=== PATIENT | female | born 2000 | race Caucasian/White ===

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

== ENCOUNTER → 2020-02-02 | Outpatient (CLI) | payer MEDICAID ==
[~2020-02-02] MED LIST changes: +ACHD5005 PO; +BENZ56AE2 TP; +DOCU100C37 PO; +FERR325T18 PO; +IBUP-1773 PO
--- NOTE | 2020-02-02 14:04 | Diagnostic Imaging Report ---
INDICATION: anatomic assessment during . TECHNIQUE: Multiple real-time grayscale images were obtained over the gravid uterus. COMPARISON: None FINDINGS: There is presence of a single live intrauterine in breech presentation. Placenta is posterior without previa. Normal amount of amniotic fluid is present, index at 11.96 cm. cardiac activity 132 bpm. Cervix measure approximately 4.7 cm. Ovaries are not visualized. Visualized anatomical structures including the kidneys, bladder, stomach, intracranial structures, four-chamber heart, three-vessel cord and insertion site as well as spine are visualized and unremarkable. Biometrical measurements are as follows: Biparietal 4.43 cm, age 19 weeks 3 days. Head circumference 17.26 cm, age 19 weeks 6 days. Abdominal circumference 15.67 cm, age 20 weeks 6 days. Femur length 3.12 cm, age 19 weeks 5 days. Sonographic estimate age: 20 weeks 0 days. Sonographic estimated date of delivery: 06/21/2020. Estimated Weight: 340 gm (+/- 50 gm). LMP percentile: 67%. heart rate: 132 beats per minute. number: 1 of 1. IMPRESSION: 1. Single live intrauterine , currently in a breech presentation. Sonographic estimated age 20 weeks 0 days for estimated date of delivery June 21, 2020. No abnormalities demonstrated at this time. Dictated by: Dictated on workstation # [id number]
== END ==
LOC: RAD 12:00
PROVIDERS: ATTEND Obstetrics & Gynecology
DX: O32.1XX0 Maternal care for breech presentation, not applicable or unspecified (principal); Z3A.20 20 weeks gestation of pregnancy
CPT/HCPCS: 76805

== ENCOUNTER 2020-06-11 17:09 | Outpatient (CLI) | payer MEDICAID ==
[~2020-06-11] VITALS: Ht 167.7 cm; Wt 113.9 kg
--- NOTE | 2020-06-11 17:17 | NUR ---
JÚNIOR ESCALERA presented to unit via wheelchair from home, accompanied by s/o , with c/o CONTRACTIONS 5 MIN APART. JÚNIOR ESCALERA weighed, gowned, voided, and to bed. EFHM and TOCO applied, VS taken. JÚNIOR ESCALERA oriented to bed controls, call light, TV, heat, and A/C controls.
[2020-06-11 17:37] VITALS: BP 137/78
--- NOTE | 2020-06-11 18:08 | NUR ---
Dr. Butler notified of pt arrival, recent sve, and contraction pattern. Plan of care reviewed. No new orders received. Addendum: 06/11/20 at 1814 by CARY GIRON RN New orders were received.
--- NOTE | 2020-06-11 18:25 | NUR ---
OB outpatient discharge instructions given to patient. PHS given to patient. Instructions given to patient on continuing going to visits. Pt verbalizes understanding. Pt signs that discharge instructions were given.
--- NOTE | 2020-06-11 18:26 | NUR ---
Pt discharged from unit in stable condition via ambulatory accompanied by s/o.
--- NOTE | 2020-06-12 08:01 | Physician Query-Final Dx ---
NICHOLAS JIMENEZ 06/12/20 0801: Clinic Account Progress/Dx Physician Query: Please give diagnosis Please include # weeks gestation Date of Service Jun 11, 2020 at 17:09 RICO MCKEON DO 06/12/20 0840: Clinic Account Progress/Dx DIAGNOSIS: Diagnosis 38 week IUP Irregular contractions NICHOLAS JIMENEZ Jun 12, 2020 08:01 RICO MCKEON DO Jun 12, 2020 08:40
== END 2020-06-11 18:26 ==
LOC: WSo 17:09 → LDRP 17:12 → WSo 18:26
PROVIDERS: ATTEND Obstetrics & Gynecology
DX: O62.0 Primary inadequate contractions (principal); Z3A.38 38 weeks gestation of pregnancy
CPT/HCPCS: 99213

== ENCOUNTER 2020-06-20 06:00 | Inpatient (IN) | payer MEDICAID ==
[2020-06-20] VITALS (32 sets, daily range): BP systolic 96–175; BP diastolic 58–105
[2020-06-20] MEDS ORDERED: D5 LR IV SOLUTION 1,000 ML IV ONE (14:17)
--- NOTE | 2020-06-20 14:20 | NUR ---
JÚNIOR ESCALERA presented to unit via AMBULATORY from ED, accompanied by S/O, with c/o INDUCTION. JÚNIOR ESCALERA weighed, gowned, voided, and to bed. EFHM and TOCO applied, VS taken. JÚNIOR ESCALERA oriented to bed controls, call light, TV, heat, and A/C controls.
[2020-06-20] MEDS ORDERED: D5 LR IV SOLUTION 1,000 ML IV SCH (14:30)
[2020-06-20] MEDS ORDERED: OXYTOCIN PRE-MIX DRIP 500 ML IV SCH (14:30)
[2020-06-20 15:09] LABS: BASOPHILS % (AUTO) 0 % (0-10); EOSINOPHILS # (AUTO) 0.2 10^3/uL (0.0-0.3); EOSINOPHILS % (AUTO) 1 % (0-10); HEMATOCRIT 30 % (35-52); HEMOGLOBIN 9.2 g/dL (11.5-16.0); LYMPHOCYTES # (AUTO) 2.4 10^3/uL (1.0-4.0); LYMPHOCYTES % (AUTO) 19 % (12-44); MEAN CORPUSCULAR HEMOGLOBIN 23 pg (25-34); MEAN CORPUSCULAR HGB CONC 31 g/dL (32-36); MEAN CORPUSCULAR VOLUME 73 fL (80-99); MEAN PLATELET VOLUME 10.8 fL (9.0-12.2); MONOCYTES # (AUTO) 0.8 10^3/uL (0.0-1.0); MONOCYTES % (AUTO) 6 % (0-12); NEUTROPHILS # (AUTO) 8.9 10^3/uL (1.8-7.8); NEUTROPHILS % (AUTO) 70 % (42-75); PLATELET COUNT 272 10^3/uL (130-400); WHITE BLOOD COUNT 12.8 10^3/uL (4.3-11.0)
--- NOTE | 2020-06-20 15:40 | History & Physical-OB ---
OB - Chief Complaint & HPI Date/Time Date of Admission: Date of Admission: Jun 20, 2020 at 1:47 pm Date seen by a Provider: Jun 20, 2020 Time Seen by a Provider: 17:30 Chief Complaint/History OB-Reason for Admission/Chief: Induction of Labor Hx : 3 Hx Para: 2 Expected Date of Delivery: Jun 22, 2020 Gestational Age in Weeks: 39 Gestational Age in Days: 5 Indication for induction: maternal discomfort Admission Nurse Assessment Rev: Yes History of Labs O pos Antibody +- anti-c RI RPR NR HBsAg NR HIV NR GC neg GBS neg Allergies and Home Medications Allergies Coded Allergies: No Known Drug Allergies (Unverified , 03/21/17) Home Medications Vit/Iron Fumarate/FA 1 Each Tablet, 1 EACH PO DAILY, (Reported) Patient Home Medication List Home Medication List Reviewed: Yes OB - History Hx of Present Care: Yes Ultrasounds: Normal mid trimester US Obstetrical Complications: None Medical Complications: None Delivery History Adverse Rxn to Tranfusion: No Patient Past Medical History BMI > 35 Immunizations Hepatitis A: Yes Hepatitis B: Yes OB - Admission Exam Physical Exam HEENT: NCAT Heart: Rhythm Normal Lungs: Clear Abdomen: Gravid Extremities: Normal Reflexes: Normal Cervical Dilatation: 4cm Effacement: 75% Station: -1 Membranes: Intact Heart Rate: 130's Accelerations: Accelerations Present Decelerations: No Decelerations Short Term Variability: Present Hand Method Lasting Machine Operator Variability: Average (6-25) Contractions on Admission: 6-10 Minutes Apart Intensity: Mild Labs Laboratory Tests Test 06/20/20 14:40 06/20/20 14:44 Range/Units White Blood Count 12.8 H 4.3-11.0 10^3/uL Red Blood Count 4.03 3.80-5.11 10^6/uL Hemoglobin 9.2 L 11.5-16.0 g/dL Hematocrit 30 L 35-52 % Mean Corpuscular Volume 73 L 80-99 fL Mean Corpuscular Hemoglobin 23 L 25-34 pg Mean Corpuscular Hemoglobin Concent 31 L 32-36 g/dL Red Cell Distribution Width 15.6 H 10.0-14.5 % Platelet Count 272 130-400 10^3/uL Mean Platelet Volume 10.8 9.0-12.2 fL Immature Granulocyte % (Auto) 3 % Neutrophils (%) (Auto) 70 42-75 % Lymphocytes (%) (Auto) 19 12-44 % Monocytes (%) (Auto) 6 0-12 % Eosinophils (%) (Auto) 1 0-10 % Basophils (%) (Auto) 0 0-10 % Neutrophils # (Auto) 8.9 H 1.8-7.8 10^3/uL Lymphocytes # (Auto) 2.4 1.0-4.0 10^3/uL Monocytes # (Auto) 0.8 0.0-1.0 10^3/uL Eosinophils # (Auto) 0.2 0.0-0.3 10^3/uL Basophils # (Auto) 0.0 0.0-0.1 10^3/uL Immature Granulocyte # (Auto) 0.4 H 0.0-0.1 10^3/uL OB - Assessment/Plan/Diagnosis Assessment Assessment: induction of labor Admission Dx 19 yo @ 39 weeks Induction of labor GBS neg Admission Status: Inpatient Order (span 2 midnights) Reason for Inpatient Admission: Induction of labor at term Plan Plan: Induction Induction Method: per Pitocin Protocol RICO MCKEON DO Jun 20, 2020 3:40 pm
[2020-06-20] MEDS ORDERED: fentaNYL 2 mcg/ml BUPIVA 0.125 100 ML ONE (16:24)
--- NOTE | 2020-06-20 16:33 | NUR ---
Zak JENNINGS CRNA NOTIFIED OF PT'S DESIRE FOR EPIDURAL PLACEMENT.
[2020-06-20] MEDS ORDERED: fentaNYL INJECTION 100 MCG/2 ML AMP ONE (16:57)
[2020-06-20] MEDS ORDERED: BUPIVACAINE 0.25% 30 ML (SENSORCAINE) VIAL ONE (16:58)
--- NOTE | 2020-06-20 17:00 | NUR ---
1700 Zak JENNINGS CRNA & ANESTHESIA STUDENT here for epidural placement. Procedure explained, consent reviewed and signed by anesthesia. Questions answered to patient's satisfaction. Time out taken to verify correct patient/procedure. 1707 Patient up to side of bed, assisted into sitting position. 1724 Betadine prep done x3 and sterile drape applied. 1725 Local done, see anesthesia record. 1729 Test dose given, see anesthesia record for drug and dosage. Epidural catheter secured in place. Epidural placement complete. 1735 Assisted back into bed, monitors adjusted. Epidural dosed, see anesthesia record. Epidural infusing @12cc/hr stated per pump. Patient tolerated procedure well. Epidural was attempted x2, see anesthesia record for further.
[2020-06-20] MEDS ORDERED: NALOXONE 0.4 MG/ML 1 ML (NARCAN) VIAL IV PRN (17:45)
[2020-06-20] MEDS ORDERED: CATHETER FLUSH 10 ML SYR IV PRN (17:45)
[2020-06-20] MEDS ORDERED: fentaNYL 2 mcg/ml BUPIVA 0.125 100 ML IV SCH (17:45)
[2020-06-20] MEDS ORDERED: LACTATED RINGERS 1,000 ML IV ONE (17:45)
[2020-06-20] MEDS ORDERED: LIDOCAINE/EPI 2% 1:200,00 (XYLOCAINE) 10 ML VIAL ONE (20:27)
--- NOTE | 2020-06-20 20:36 | NUR ---
(Social Service Consult entered) Delivery time, see labor lilli, S/O who has previously been staring off while being addressed verbally by rn, and sleeping heavily at pt bedside, does not wake as pt yelling his name for support through delivery. S/o was lightly shaken awake by this rn and now up at pt bedside for delivery. As pt being coached by staff, s/o mumbling under breath and cussing, as delivers and is put on MOB chest, S/O impulsively walks from room as his mumbling continues and goes to vending machine for soft drink. returns to room within minutes and is back at pt bedside as mob holds stable infant.
--- NOTE | 2020-06-20 20:54 | OB Labor & Delivery Record ---
L&D History Date of Service Date of Service: Jun 20, 2020 History Expected Date of Delivery: Jun 22, 2020 Gestational Age in Weeks: 39 Hx : 3 Hx Para: 2 Complications Events: Routine care Operative Indications (Cesarea: N/A-Vaginal Delivery Intrapartal Events: None L&D Stage1 Stage One Onset of Labor - Date: Jun 20, 2020 Monitors and Tracing Monitor Mode: External Heart Rate: 120 Monitor Accelerations: Uniform Monitor Decelerations: Variable Station: -2 Longterm Variability: Average (6-10) Short Term Variability: Present Presentation: Vertex Vital Signs VS - Last 72 Hours, by Label 06/20/20 06/20/20 06/20/20 06/20/20 14:24 15:16 15:40 15:48 Temp 36.1 Pulse 103 87 86 81 Resp 18 18 18 18 B/P (MAP) 132/75 (94) 125/83 (97) 125/72 (89) 127/84 (98) O2 Delivery Room Air Room Air Room Air Room Air 06/20/20 06/20/20 06/20/20 06/20/20 16:01 16:17 16:33 16:46 Temp 36.3 Pulse 82 79 86 85 Resp 18 18 18 18 B/P (MAP) 132/85 (101) 175/105 (128) 140/86 (104) 116/85 (95) O2 Delivery Room Air Room Air Room Air Room Air 06/20/20 06/20/20 06/20/20 06/20/20 17:01 17:09 17:11 17:14 Pulse 78 91 96 92 Resp 18 18 18 18 B/P (MAP) 127/77 (94) 141/79 (99) 135/62 (86) 139/87 (104) Pulse Ox 98 100 O2 Delivery Room Air Room Air Room Air Room Air 06/20/20 06/20/20 06/20/20 06/20/20 17:18 17:20 17:23 17:26 Pulse 91 83 97 96 Resp 18 18 18 18 B/P (MAP) 133/74 (93) 139/85 (103) 143/92 (109) 136/98 (111) Pulse Ox 100 100 100 100 O2 Delivery Room Air Room Air Room Air Room Air 06/20/20 06/20/20 06/20/2006/20/20 17:32 17:38 17:51 17:56 Temp 36.1 35.9 Pulse 90 90 126 96 Resp 18 18 18 18 B/P (MAP) 137/88 (104) 114/70 (85) 112/67 (82) 122/72 (89) Pulse Ox 100 100 98 98 O2 Delivery Room Air Room Air Room Air Room Air 06/20/20 06/20/20 06/20/20 06/20/20 18:12 18:28 18:34 18:42 Temp 36.2 36.4 Pulse 109 106 99 Resp 18 18 18 B/P (MAP) 113/77 (89) 109/72 (84) 107/69 (82) Pulse Ox 98 99 98 O2 Delivery Room Air Room Air Room Air 06/20/20 18:58 Pulse 85 Resp 18 B/P (MAP) 96/58 (71) Pulse Ox 98 O2 Delivery Room Air Rupture of Membranes Spontaneous Ruture of Membrane: No Amniotic Membrane Rupture Time: 1554 Amniotic Membrane Fluid Desc.: Clear Vaginal Bleeding Description: Normal Show Induction/Anesthesia Epidural Cath Placement - Time: 1728 Progress/Notes Patient admitted this afternoon for IOL electively at 39 weeks. She had arom and pitocin augmentation, received an epidural and progressed to complete and +2 station. L&D Stage2 Stage Two Stage II Date: Jun 20, 2020 Monitors and Tracing Monitor Mode: External Heart Rate: 120 Monitor Accelerations: Uniform Monitor Decelerations: Variable Gymnastics Instructor Variability: Average (6-10) Short Term Variability: Present Position: Right Occiput Anterior Presentation: Vertex Cord Descript/Complications Cord Vessel Description: 3 Vessels Delivery Type Delivery Method: Spontaneous Vaginal Anterior Shoulder: Right Condition of Delivery 1 minute Comment: 8 5 minute Comment: 9 Notes Live male infant weight pending Condition of Infant Condition of : Living Exam: No Observed Abnormalities Resuscitation Resuscitation: N/A - Spontaneous Resp L&D Stage3 Stage Three Stage III Date: Jun 20, 2020 Pictocin Pitocin Administration mu/min: 2 Pitocin ml/hr: 2 Pitocin Administration Comment: 30 mu wide open at delivery of placenta. Placenta Delivery Placenta Delivery: Spontaneous Delivery Summary Summary Estimated blood loss (mL): 300 Attending at delivery: Rico Mckeon DO Condition of Delivery Examined: Cervix Examined, Uterus Explored Post Hemorrhage: No Condition of Mother stable Condition of (s) stable RICO MCKEON DO Jun 20, 2020 20:53
[2020-06-20] MEDS ORDERED: BENZ78AE5 TP (20:55)
[2020-06-20] MEDS ORDERED: DCS100C PO (20:55)
[2020-06-20] MEDS ORDERED: ACHD5005 PO (20:55)
[2020-06-20] MEDS ORDERED: DIBU30OI TOP (20:55)
[2020-06-20] MEDS ORDERED: IBUP-844 PO (20:55)
--- NOTE | 2020-06-20 20:56 | Discharge Inst-Women's Service ---
Discharge Inst-Women's Serv Depart Medication/Instructions New, Converted or Re-Newed RX: RX on Chart Problems Reviewed?: Yes Consults/Follow Up Additional Follow Up: Yes Activity Activity: Activity as Tolerated Driving Instructions: No Driving for 1 Week NO SMOKING: NO SMOKING Nothing Inside Vagina: No Douching, No [place], No Tampons Diet Discharge Diet: No Restrictions Symptoms to Report to : Bleeding Excessive, Pain Increased, Fever Over 101 Degrees F, Vaginal Bleeding Increase, Questions/Concerns For Any Problems or Questions: Contact Your Physician RICO MCKEON DO Jun 20, 2020 20:56
[2020-06-20] MEDS ORDERED: TETANUS,DIPTH,PERTUSS P/F (BOOSTRIX) 0.5 ML VIAL IM ONE (21:00)
[2020-06-20] MEDS ORDERED: BENZOCAINE/MENTHOL (DERMOPLAST) 60 ML CAN TP PRN (21:00)
[2020-06-20] MEDS ORDERED: HYDROcodone/APAP 5 MG/325 MG (LORTAB) TAB PO PRN (21:00)
[2020-06-20] MEDS ORDERED: DIBUCAINE (NUPERCAINAL) 1% OINT 30 GM TOP PRN (21:00)
[2020-06-20] MEDS ORDERED: WITCH HAZEL(TUCKS) 40 EA JAR TOP PRN (21:00)
[2020-06-20] MEDS ORDERED: MEASLES,MUMPS,RUBELLA 1 EA INJ SQ ONE (21:00)
[2020-06-20] MEDS: OXYTOCIN PRE-MIX DRIP 500 ML IV SCH ×2 (21:10→23:07)
[2020-06-20] MEDS ORDERED: CATHETER FLUSH 10 ML SYR IV SCH ×2 (22:00)
--- NOTE | 2020-06-20 22:10 | NUR ---
Pt up to bathroom, unable to void, pericare pads and gown changed pt ambulates to pp unit room 313, oriented to surroundings info packet, and call system, understanding voiced. S/o at pt side now, plans to leave, rn educated s/o that if he leaves, he cannot reenter the hospital at any time during pts stay. Understanding voiced by s/o who still intends to leave, and bring [employer] back to pt by leaving it with registration.
--- NOTE | 2020-06-20 23:20 | NUR ---
Pt up to bathroom independently, first void since delivery, pt calls rn for concern of bleeding, pt reassured, ff midline u/0, no gushing or bleeding noted on fundal massage, will cont to monitor. Pt voiced understanding.
[2020-06-21 02:10] VITALS: BP 128/67
[2020-06-21] MEDS: IBUPROFEN 600 MG (MOTRIN) TAB PO SCH ×4 (02:11→22:01)
[2020-06-21 06:24] VITALS: BP 124/78
--- NOTE | 2020-06-21 06:52 | Anesthesia-Regional Post-Op ---
Regional Patient Condition Mental Status: Alert, Oriented x3 Circulation: Same as Pre-Op Headache: Absent Sensation: Full Recovery Motor Block: Absent Post Op Complications Complications None Follow Up Care/Instructions Patient Instructions None needed. Anesthesia/Patient Condition Patient is doing well, no complaints, stable vital signs, no apparent adverse anesthesia problems. No complications reported per nursing. D/C home per [facility] Criteria: No GISELL JENNINGS CRNA Jun 21, 2020 06:52
[2020-06-21 06:57] LABS: BASOPHILS % (AUTO) 0 % (0-10); EOSINOPHILS # (AUTO) 0.1 10^3/uL (0.0-0.3); EOSINOPHILS % (AUTO) 1 % (0-10); HEMATOCRIT 27 % (35-52); HEMOGLOBIN 8.1 g/dL (11.5-16.0); LYMPHOCYTES # (AUTO) 3.1 10^3/uL (1.0-4.0); LYMPHOCYTES % (AUTO) 22 % (12-44); MEAN CORPUSCULAR HEMOGLOBIN 22 pg (25-34); MEAN CORPUSCULAR HGB CONC 30 g/dL (32-36); MEAN CORPUSCULAR VOLUME 74 fL (80-99); MEAN PLATELET VOLUME 10.6 fL (9.0-12.2); MONOCYTES # (AUTO) 0.9 10^3/uL (0.0-1.0); MONOCYTES % (AUTO) 7 % (0-12); NEUTROPHILS # (AUTO) 9.7 10^3/uL (1.8-7.8); NEUTROPHILS % (AUTO) 69 % (42-75); PLATELET COUNT 215 10^3/uL (130-400); WHITE BLOOD COUNT 14.1 10^3/uL (4.3-11.0)
--- NOTE | 2020-06-21 08:43 | Postpartum Progress Note ---
Note Note Day # 1 Subjective: Patient is without complaints. Ambulating, voiding. Tolerating a regular diet without nausea or vomiting. Normal lochia. Pain is well controlled with oral pain medications. Objective: Physical Exam: General - Alert and oriented, no apparent distress Abdomen - Soft, appropriately tender to palpation, non-distended, fundus firm at umbilicus Extremities - no edema, negative Misael's bilaterally Assessment: PPD 1 NVD Acute blood loss anemia Plan: Routine care. Encourage breast feeding. Encourage ambulation. Ferrous sulfate supplementation. Plan for discharge tomorrow Vitals - Labs Vital Signs - I&O Vital Signs Date Time Temp Pulse Resp B/P (MAP) Pulse Ox O2 Delivery O2 Flow Rate FiO2 06/21/20 06:24 36.8 82 18 124/78 (93) 96 Room Air 06/21/20 02:10 36.6 94 18 128/67 (87) 97 Room Air 06/20/20 22:10 81 18 123/77 (92) Room Air 06/20/20 22:00 78 18 123/77 (92) Room Air 06/20/20 21:45 37.0 91 18 124/85 (98) Room Air 06/20/20 21:30 37.0 77 18 124/80 (95) Room Air 06/20/20 21:15 36.6 77 18 123/58 (79) Room Air 06/20/20 21:00 36.6 76 18 131/66 (87) Room Air 06/20/20 20:45 36.8 90 18 131/62 (85) Room Air 06/20/20 20:36 Room Air 06/20/20 20:30 93 18 135/76 (95) 100 Non Rebreather 15.00 06/20/20 20:15 79 18 100 Non Rebreather 15.00 06/20/20 20:00 76 18 100 Non Rebreather 15.00 06/20/20 19:45 75 18 100 Non Rebreather 15.00 06/20/20 18:58 85 18 96/58 (71) 98 Room Air 06/20/20 18:42 99 18 107/69 (82) 98 Room Air 06/20/20 18:34 36.4 06/20/20 18:28 106 18 109/72 (84) 99 Room Air 12/17/20 18:12 36.2 109 18 113/77 (89) 98 Room Air 06/20/20 17:56 35.9 96 18 122/72 (89) 98 Room Air 06/20/20 17:51 126 18 112/67 (82) 98 Room Air 06/20/20 17:38 36.1 90 18 114/70 (85) 100 Room Air 06/20/20 17:32 90 18 137/88 (104) 100 Room Air 06/20/20 17:26 96 18 136/98 (111) 100 Room Air 06/20/20 17:23 97 18 143/92 (109) 100 Room Air 06/20/20 17:20 83 18 139/85 (103) 100 Room Air 06/20/20 17:18 91 18 133/74 (93) 100 Room Air 06/20/20 17:14 92 18 139/87 (104) 100 Room Air 06/20/20 17:11 96 18 135/62 (86) Room Air 06/20/20 17:09 91 18 141/79 (99) 98 Room Air 06/20/20 17:01 78 18 127/77 (94) Room Air 06/20/20 16:46 85 18 116/85 (95) Room Air 06/20/20 16:33 86 18 140/86 (104) Room Air 06/20/20 16:17 36.3 79 18 175/105 (128) Room Air 06/20/20 16:01 82 18 132/85 (101) Room Air 06/20/20 15:48 81 18 127/84 (98) Room Air 06/20/20 15:40 86 18 125/72 (89) Room Air 06/20/20 15:16 36.1 87 18 125/83 (97) Room Air 06/20/20 14:24 103 18 132/75 (94) Room Air I & O 06/21/20 07:00 Intake Total 1000 ml Balance 1000 ml Labs Laboratory Tests 06/20/20 14:40: White Blood Count 12.8H, Red Blood Count 4.03, Hemoglobin 9.2L, Hematocrit 30L, Mean Corpuscular Volume 73L, Mean Corpuscular Hemoglobin 23L, Mean Corpuscular Hemoglobin Concent 31L, Red Cell Distribution Width 15.6H, Platelet Count 272, Mean Platelet Volume 10.8, Immature Granulocyte % (Auto) 3, Neutrophils (%) (Auto) 70, Lymphocytes (%) (Auto) 19, Monocytes (%) (Auto) 6, Eosinophils (%) (Auto) 1, Basophils (%) (Auto) 0, Neutrophils # (Auto) 8.9H, Lymphocytes # (Auto) 2.4, Monocytes # (Auto) 0.8, Eosinophils # (Auto) 0.2, Basophils # (Auto) 0.0, Immature Granulocyte # (Auto) 0.4H 06/20/20 14:44: Coronavirus (COVID-19)(PCR) Negative 06/21/20 06:15: White Blood Count 14.1H, Red Blood Count 3.63L, Hemoglobin 8.1L, Hematocrit 27L, Mean Corpuscular Volume 74L, Mean Corpuscular Hemoglobin 22L, Mean Corpuscular Hemoglobin Concent 30L, Red Cell Distribution Width 15.6H, Platelet Count 215, Mean Platelet Volume 10.6, Immature Granulocyte % (Auto) 1, Neutrophils (%) (Auto) 69, Lymphocytes (%) (Auto) 22, Monocytes (%) (Auto) 7, Eosinophils (%) (Auto) 1, Basophils (%) (Auto) 0, Neutrophils # (Auto) 9.7H, Lymphocytes # (Auto) 3.1, Monocytes # (Auto) 0.9, Eosinophils # (Auto) 0.1, Basophils # (Auto) 0.0, Immature Granulocyte # (Auto) 0.1 RICO MCKEON DO Jun 21, 2020 8:43 am
[2020-06-21 10:12] VITALS: BP 134/73
[2020-06-21] MEDS: DOCUSATE SODIUM 100 MG (COLACE) CAP PO SCH ×2 (10:14→22:01)
[2020-06-21] MEDS: PRENATAL VITAMIN 1 EA TAB PO SCH (10:14)
--- NOTE | 2020-06-21 10:30 | NUR ---
PRODUCTION BORING MACHINE OPERATOR CURRENTLY AT BEDSIDE.
--- NOTE | 2020-06-21 11:27 | NUR ---
CM/SS: Visited with pt as per Collection Correspondent Consult related to issues with significant other and financial assistance. Plan: Pt will return home where she lives with and her two other children, in [place], [place] Summary: Pt is attempting to breast feed her infant the entire time this worker is present. However, pt is having some issues with getting to latch on. Pt is able to talk to this worker during this. Pt is asked about his significant other and him not being able to stay awake during the . She reports that he was extremely tired and he was just unable to stay awake. She reports having been up all night and then early in the morning. She reports he is here, only he is in the parking lot, as he left to get [employer] and can not return, due to the visitor policy. Pt has WIC for her other children - ages 2 and 3, and she will notify them that she has delivered. She does have doctor lined up for the , as she will use the other children's doctors. Post depression is discussed - pt reports a history of some depression and was in foster care when she was 12 until age 15 and adopted. Pt is encouraged to let her primary physician know if she feels like she is experiencing some depression. She reports having contact with her biological parents and not her adoptive parents and identify them as a support. She also report that she has support of her 's family. She is given a list of resources provided from the [facility]. She thanks this worker for visiting and is wished well. Follow up information given to the nurse assigned to pt.
[2020-06-21 14:32] VITALS: BP 114/64
[2020-06-21 18:31] VITALS: BP 143/88
--- NOTE | 2020-06-21 18:35 | NUR ---
PT AT THIS TIME. VS OBTAINED. SHOWER SET UP PER REQUEST, MORE WIPES PLACED INTO BATHROOM. NO FURTHER NEEDS VOICED AT THIS TIME. CALL LIGHT WITHIN REACH.
[2020-06-21 21:00] VITALS: BP 145/89
[2020-06-22 02:00] VITALS: BP 142/76
[2020-06-22] MEDS: DOCUSATE SODIUM 100 MG (COLACE) CAP PO SCH ×2 (03:39→08:55)
[2020-06-22] MEDS: IBUPROFEN 600 MG (MOTRIN) TAB PO SCH ×3 (03:40→15:21)
--- NOTE | 2020-06-22 07:00 | NUR ---
REPORT FROM YEVGENIY HINKLE.
[2020-06-22 08:54] VITALS: BP 138/76
[2020-06-22] MEDS: PRENATAL VITAMIN 1 EA TAB PO SCH (08:55)
--- NOTE | 2020-06-22 11:07 | Postpartum Progress Note ---
Note Note Day # 2 Subjective: Patient is without complaints. Ambulating, voiding. Tolerating a regular diet without nausea or vomiting. Normal lochia. Pain is well controlled with oral pain medications. Objective: Physical Exam: General - Alert and oriented, no apparent distress Abdomen - Soft, appropriately tender to palpation, non-distended, fundus firm at umbilicus Extremities - no edema, negative Misael's bilaterally Assessment: PPD 2 NVD Plan: Routine care. Encourage breast feeding. Encourage ambulation. Ferrous sulfate supplementation. Plan for discharge today Vitals - Labs Vital Signs - I&O Vital Signs Date Time Temp Pulse Resp B/P (MAP) Pulse Ox O2 Delivery O2 Flow Rate FiO2 06/22/20 08:54 35.8 88 18 138/76 (96) 97 Room Air 06/22/20 02:00 37.1 73 18 142/76 (98) 98 Room Air 06/21/20 21:00 36.4 81 18 145/89 (107) 99 Room Air 06/21/20 18:31 77 18 143/88 (106) 99 Room Air 06/21/20 14:32 36.3 92 18 114/64 (81) 99 Room Air RICO MCKEON DO Jun 22, 2020 11:07
--- NOTE | 2020-06-22 11:30 | NUR ---
DR MCKEON HERE NEW ORDERS RECEIVED.
--- NOTE | 2020-06-22 15:15 | NUR ---
JÚNIOR ESCALERA demonstrates understanding of discharge instructions and accurately returns instructions upon questioning. Copy of Post-Discharge Instructions given to pt. JÚNIOR ESCALERA is/ able to manage continuing needs after discharge. Patients belongings returned to .
[2020-06-22 15:22] VITALS: BP 147/90
--- NOTE | 2020-06-22 16:30 | NUR ---
Patient discharged from 3313-1 on 06/22/20 at 1630. JÚNIOR ESCALERA left floor via [WC], accompanied by [STAFF].
== END 2020-06-22 16:30 | disposition home or self-care (01) | DRG 806 ==
LOC: LDRP 13:47
PROVIDERS: ADMIT Obstetrics & Gynecology; ATTEND Obstetrics & Gynecology
PROC: 10E0XZZ Delivery of Products of Conception, External Approach (ICD-10-PCS; principal; 2020-06-20)
PROC: 3E033VJ Introduction of Other Hormone into Peripheral Vein, Percutaneous Approach (ICD-10-PCS; 2020-06-20)
DX: O90.81 Anemia of the puerperium (principal); D62 Acute posthemorrhagic anemia; Z37.0 Single live birth; Z3A.39 39 weeks gestation of pregnancy
CPT/HCPCS: 36415; 85025; 86850; 86870; 86900; 86901; 86902; 87635

== ENCOUNTER → 2021-11-05 | Outpatient (CLI) | payer MEDICAID ==
[~2021-11-05] MED LIST changes: +BENZ78AE5 TP; +DIBU30OI TOP; +DOCU-239 PO; +IBUP-844 PO
[2021-11-05 16:23] LABS: BASOPHILS # (AUTO) 0.1 10^3/uL (0.0-0.1); BASOPHILS % (AUTO) 1 % (0-10); EOSINOPHILS # (AUTO) 0.1 10^3/uL (0.0-0.3); EOSINOPHILS % (AUTO) 1 % (0-10); HEMATOCRIT 37 % (35-52); HEMOGLOBIN 11.5 g/dL (11.5-16.0); LYMPHOCYTES # (AUTO) 2.5 10^3/uL (1.0-4.0); LYMPHOCYTES % (AUTO) 29 % (12-44); MEAN CORPUSCULAR HEMOGLOBIN 26 pg (25-34); MEAN CORPUSCULAR HGB CONC 31 g/dL (32-36); MEAN CORPUSCULAR VOLUME 84 fL (80-99); MEAN PLATELET VOLUME 10.9 fL (9.0-12.2); MONOCYTES # (AUTO) 0.4 10^3/uL (0.0-1.0); MONOCYTES % (AUTO) 5 % (0-12); NEUTROPHILS # (AUTO) 5.5 10^3/uL (1.8-7.8); NEUTROPHILS % (AUTO) 64 % (42-75); PLATELET COUNT 285 10^3/uL (130-400); WHITE BLOOD COUNT 8.6 10^3/uL (4.3-11.0)
[2021-11-05 21:08] LABS: HEPATITIS C ANTIBODY C Non-Reactive (Non-Reactive)
== END ==
LOC: LABNPT 16:04
PROVIDERS: ATTEND Obstetrics & Gynecology
DX: Z36.89 Encounter for other specified antenatal screening (principal)
CPT/HCPCS: 82105; 85025; 86703; 86762; 86780; 86803; 86850; 86870; 86900; 86901; 87340

== ENCOUNTER → 2021-12-11 | Outpatient (CLI) | payer MEDICAID ==
--- NOTE | 2021-12-11 17:09 | Diagnostic Imaging Report ---
INDICATION: patient, survey. TECHNIQUE: Multiple real-time grayscale images were obtained over the gravid uterus. COMPARISON: None during this . FINDINGS: A single live intrauterine fetus is seen measuring 20 weeks 4 days in size by composite measurements. The fetus is in transverse orientation with head on the maternal left. Cervical length is 3.9 cm. Placenta is anterior with no evidence of previa. Distance from the internal os to the placental tip was 4.8 cm. heart rate is 153 bpm. Maternal adnexa show no free fluid. survey showed normal-appearing kidneys and bladder. Normal-appearing stomach was seen. Normal-appearing intracranial ventricles were seen. Three-vessel cord and cord insertion appear normal. spine appear unremarkable. The four-chamber heart view appeared normal. Biometrical measurements are as follows: Biparietal 4.62 cm, age 20 weeks 0 days. Head circumference 18.46 cm, age 20 weeks 6 days. Abdominal circumference 15.31 cm, age 20 weeks 4 days. Femur length 3.41 cm, age 20 weeks 6 days. Sonographic estimate age: 20 weeks 4 days. Sonographic estimated date of delivery: 04/26/2022. Estimated Weight: 365 gm (+/- 54 gm). LMP percentile: 55%. heart rate: 153 beats per minute. number: 1 of 1. IMPRESSION: Single live intrauterine fetus measuring 20 weeks 4 days in size, with no detectable abnormality. Dictated by: Dictated on workstation # [id number]
== END ==
LOC: RAD 15:30
PROVIDERS: ATTEND Nurse Practitioner Women's Health
DX: Z34.92 Encounter for supervision of normal pregnancy, unspecified, second trimester (principal); Z3A.20 20 weeks gestation of pregnancy
CPT/HCPCS: 76805

== ENCOUNTER 2022-04-24 09:30 | Inpatient (IN) | payer MEDICAID ==
[~2022-04-24] VITALS: Ht 168 cm; Wt 101.2 kg
[2022-04-24] VITALS (29 sets, daily range): BP systolic 93–139; BP diastolic 56–91
[2022-04-24] MEDS ORDERED: LIDOCAINE/EPI 2% 1:200,00 (XYLOCAINE) 10 ML VIAL INJ PRN (10:15)
[2022-04-24] MEDS ORDERED: MINERAL OIL 30 ML UDC TOP PRN (10:15)
[2022-04-24] MEDS ORDERED: D5 LR IV SOLUTION 1,000 ML IV SCH (10:15)
[2022-04-24 10:31] LABS: BILIRUBIN,URINE NEGATIVE (NEGATIVE); CLARITY,URINE CLEAR; COLOR,URINE YELLOW; GLUCOSE, URINE (UA) NEGATIVE (NEGATIVE); KETONES,URINE NEGATIVE (NEGATIVE); LEUKOCYTE ESTERASE ,URINE 1+ (NEGATIVE); NITRITE,URINE NEGATIVE (NEGATIVE); PROTEIN,URINE NEGATIVE (NEGATIVE)
[2022-04-24 10:42] LABS: AMORPHOUS SEDIMENT,UR FEW AMOR PHOSPHATE /LPF; BACTERIA,URINE MODERATE /HPF
[2022-04-24 11:23] LABS: BASOPHILS % (AUTO) 0 % (0-10); EOSINOPHILS # (AUTO) 0.1 10^3/uL (0.0-0.3); EOSINOPHILS % (AUTO) 1 % (0-10); HEMATOCRIT 33 % (35-52); HEMOGLOBIN 10.7 g/dL (11.5-16.0); LYMPHOCYTES # (AUTO) 1.9 10^3/uL (1.0-4.0); LYMPHOCYTES % (AUTO) 14 % (12-44); MEAN CORPUSCULAR HEMOGLOBIN 26 pg (25-34); MEAN CORPUSCULAR HGB CONC 33 g/dL (32-36); MEAN CORPUSCULAR VOLUME 81 fL (80-99); MEAN PLATELET VOLUME 10.7 fL (9.0-12.2); MONOCYTES # (AUTO) 0.6 10^3/uL (0.0-1.0); MONOCYTES % (AUTO) 5 % (0-12); NEUTROPHILS # (AUTO) 11.4 10^3/uL (1.8-7.8); NEUTROPHILS % (AUTO) 80 % (42-75); PLATELET COUNT 217 10^3/uL (130-400); WHITE BLOOD COUNT 14.2 10^3/uL (4.3-11.0)
[2022-04-24] MEDS ORDERED: fentaNYL 2 mcg/ml BUPIVA 0.125 100 ML ONE (12:07)
[2022-04-24] MEDS ORDERED: OXYTOCIN PRE-MIX DRIP 500 ML IV ONE (12:30)
[2022-04-24] MEDS ORDERED: fentaNYL INJ 100 MCG/2 ML AMP ONE (12:42)
[2022-04-24] MEDS ORDERED: BUPIVACAINE 0.25% 30 ML (SENSORCAINE) VIAL ONE (12:43)
[2022-04-24] MEDS ORDERED: diphenhydrAMINE 50 MG/ML INJ (BENADRYL) IV PRN (13:30)
[2022-04-24] MEDS ORDERED: fentaNYL 2 mcg/ml BUPIVA 0.125 100 ML IV SCH (13:30)
[2022-04-24] MEDS ORDERED: ONDANSETRON 4 MG/2 ML (SDV) Z0FRAN IV PRN (13:30)
[2022-04-24] MEDS ORDERED: LACTATED RINGERS 1,000 ML IV ONE (13:30)
[2022-04-24] MEDS ORDERED: CATHETER FLUSH 10 ML SYR IV PRN (13:30)
[2022-04-24] MEDS ORDERED: NALOXONE 0.4 MG/ML 1 ML (NARCAN) VIAL IV PRN ×2 (13:30→17:00)
--- NOTE | 2022-04-24 15:12 | History & Physical-OB ---
OB - Chief Complaint & HPI Date/Time Date of Admission: Date of Admission: Apr 24, 2022 at 09:30 Date seen by a Provider: Apr 24, 2022 Time Seen by a Provider: 15:07 Chief Complaint/History OB-Reason for Admission/Chief: Onset of Labor Hx : 4 Hx Para: 3 Expected Date of Delivery: Apr 27, 2022 Gestational Age in Weeks: 39 Gestational Age in Days: 4 Other reason for admission: Term Labor Admission Nurse Assessment Rev: Yes History of Labs Labs: O+/+ anti C Ab, VDRL NR, Rubella Immune, HBsAg non-reactive, GC/CT negative, 1hr GCT 78, GBS neg Allergies and Home Medications Allergies Coded Allergies: No Known Drug Allergies (Unverified , 03/21/17) Patient Home Medication List Home Medication List Reviewed: Yes Discontinued Medications Benzocaine/Menthol (Dermoplast Pain Relieving [place]) 78 Gm Aerosol, 56 ML TP UD PRN for PAIN- SEE INSTRUCTIONS Prescribed by: RICO MCKEON on 06/20/202054 Last Action: Discontinued Dibucaine (Dibucaine) 30 Gm Oint, 0 GM TOP UD PRN for PAIN- SEE INSTRUCTIONS Prescribed by: RICO MCKEON on 06/20/202054 Last Action: Discontinued Docusate Sodium (Dok) 100 Mg Capsule, 100 MG PO BID PRN for CONSTIPATION-1ST LINE Prescribed by: RICO MCKEON on 06/20/202054 Last Action: Discontinued Hydrocodone/Acetaminophen (Hydrocodone-Acetamin 5-325 mg) 1 Each Tablet, 1-2 TAB PO Q6HR PRN for PAIN-MODERATE (5-7) Prescribed by: RICO MCKEON on 06/20/202054 Last Action: Discontinued Ibuprofen (Ibu) 600 Mg Tablet, 600 MG PO Q6HR Prescribed by: RICO MCKEON on 06/20/202054 Last Action: Discontinued Vit/Iron Fumarate/FA ( Tablet) 1 Each Tablet, 1 EACH PO DAILY, (Reported) Entered as Reported by: YVONNE NAGY on 02/10/172103 Last Action: Discontinued OB - History Hx of Present Care: Yes Ultrasounds: Normal mid trimester US Obstetrical Complications: None Medical Complications: Gastrointestinal (GERD) Information Induced Hypertension: No Maternal Gestational Diabetes: No Hemorrhage: No Obstetrical History Hx Termination: No Hx Multiple Gestation: No Hx Ectopic : No Hx Stillbirth: No Hx Complication: No Hx Induced Hypertens: No Hx Maternal Gestational Diabet: No Hx Hemorrhage: No Delivery History Hx Dystocia: No Hx Forceps Assisted Delivery: No Hx Vacuum Extraction Assisted: No Hx Placenta Abnormality: No Hx Distress: No Hx Large For Gestational Age I: No Hx Small for Gestational Age I: No Hx Section: No Hx Vaginal Delivery Post C-Sec: No Hx Blood Disorders: No Adverse Rxn to Tranfusion: No Patient Past Medical History BMI > 35 GERD Social History/Family History Alcohol Use: Denies Use Recreational Drug Use: Yes (Reports Marijuana use) Smoking Cessation: Current every day smoker Immunizations Influenza Vaccine Up-to-Date: No; Not Current Hepatitis A: No Hepatitis B: No Rubella: immune RPR/VDRL: Negative GBS Status: Negative OB - Admission Exam Physical Exam Vitals: Vital Signs 04/24/22 04/24/22 11:00 13:15 Temp 36.8 Pulse 108 Resp 18 B/P (MAP) 113/69 (84) Pulse Ox 97 O2 Delivery Room Air HEENT: EOMI Lungs: Equal (non-labored, symmetric chest rise) Abdomen: Gravid Extremities: Normal Cervical Dilatation: 5cm Effacement: 75% Station: -2 Membranes: Intact Heart Rate: 130's Accelerations: Accelerations Present Decelerations: Variable Decelerations Short Term Variability: Present Jail Variability: Average (6-25) Contractions on Admission: < 5 Minutes Apart Date/Time Contractions Began;: 04/24/22 [place] Scoring Tool (Modified) Dilation (cm): >5cm (3) Effacement (%): 51-79% (2) Descent/Station: -2 (1) Cervix Consistency: Medium(1) Cervix Position: Posterior (0) Labs Laboratory Tests Test 04/24/22 09:30 04/24/22 10:01 04/24/22 11:05 Range/Units Urine Color YELLOW Urine Clarity CLEAR Urine pH 7.0 5-9 Urine Specific [place] 1.015 L 1.016-1.022 Urine Protein NEGATIVE NEGATIVE Urine Glucose (UA) NEGATIVE NEGATIVE Urine Ketones NEGATIVE NEGATIVE Urine Nitrite NEGATIVE NEGATIVE Urine Bilirubin NEGATIVE NEGATIVE Urine Urobilinogen 0.2 < = 1.0 MG/DL Urine Leukocyte Esterase 1+ H NEGATIVE Urine RBC (Auto) 2+ H NEGATIVE Urine RBC 5-10 H /HPF Urine WBC 5-10 H /HPF Urine Squamous Epithelial Cells 5-10 /HPF Urine Crystals PRESENT H /LPF Urine Amorphous Sediment FEW ELIE PHOSPHATE H /LPF Urine Bacteria MODERATE H /HPF Urine Casts NONE /LPF Urine Mucus NEGATIVE /LPF Urine Culture Indicated CULTURE PENDING White Blood Count 14.2 H 4.3-11.0 10^3/uL Red Blood Count 4.06 3.80-5.11 10^6/uL Hemoglobin 10.7 L 11.5-16.0 g/dL Hematocrit 33 L 35-52 % Mean Corpuscular Volume 81 80-99 fL Mean Corpuscular Hemoglobin 26 25-34 pg Mean Corpuscular Hemoglobin Concent 33 32-36 g/dL Red Cell Distribution Width 13.8 10.0-14.5 % Platelet Count 217 130-400 10^3/uL Mean Platelet Volume 10.7 9.0-12.2 fL Immature Granulocyte % (Auto) 1 % Neutrophils (%) (Auto) 80 H 42-75 % Lymphocytes (%) (Auto) 14 12-44 % Monocytes (%) (Auto) 5 0-12 % Eosinophils (%) (Auto) 1 0-10 % Basophils (%) (Auto) 0 0-10 % Neutrophils # (Auto) 11.4 H 1.8-7.8 10^3/uL Lymphocytes # (Auto) 1.9 1.0-4.0 10^3/uL Monocytes # (Auto) 0.6 0.0-1.0 10^3/uL Eosinophils # (Auto) 0.1 0.0-0.3 10^3/uL Basophils # (Auto) 0.0 0.0-0.1 10^3/uL Immature Granulocyte # (Auto) 0.1 0.0-0.1 10^3/uL OB - Assessment/Plan/Diagnosis Assessment Assessment: active labor Admission Dx Labor Admission Status: Inpatient Order (span 2 midnights) Reason for Inpatient Admission: Labor Intrauterine at 39w4d Plan Plan: Expectant Management (Augmentation as indicated) MATT UP MD Apr 24, 2022 15:12
--- NOTE | 2022-04-24 15:51 | Labor Progress Note ---
Labor Progress Note Labor Progress Note Date Seen by Provider: Apr 24, 2022 Time Seen by Provider: 15:20 Subjective: Pt denies complaints. s/p Epidural. Comfortable Objective: Vital Signs 04/24/22 04/24/22 11:00 13:15 Temp 36.8 Pulse 108 Resp 18 B/P (MAP) 113/69 (84) Pulse Ox 97 O2 Delivery Room Air Cervical exam: 5 Consistency: medium Position: posterior Presentation: cephalic heart tones: 130 beats per minute, moderate variability, Variable decels, + accels Tocometer: 3 ctx/10 minutes Assessment/Plan: Janine Kang is a (21 /Para 4 / 3,Gestational Age (wks)39 here for Labor. CEFM/TOCO AROM performed for labor augmentation given no cervical change from admission. Minimal fluid with thin meconium stain noted Anesthesia: Epidural Anticipate vaginal delivery. Vitals - Labs Vital Signs - I&O Vital Signs Date Time Temp Pulse Resp B/P (MAP) Pulse Ox O2 Delivery O2 Flow Rate FiO2 04/24/22 13:15 108 18 113/69 (84) 97 Room Air 04/24/22 13:03 93 125/77 (93) 04/24/22 12:59 91 18 137/85 (102) 100 Room Air 04/24/22 12:58 89 18 134/81 (98) 100 Room Air 04/24/22 12:54 98 18 139/91 (107) 100 Room Air 04/24/22 12:47 97 18 119/79 (92) 100 Room Air 04/24/22 12:30 04/24/22 12:00 04/24/22 11:30 Room Air 04/24/22 11:00 36.8 85 18 119/79 (92) 98 Room Air 04/24/22 10:00 36.8 103 18 100 Room Air Labs Laboratory Tests 04/24/22 09:30: Urine Color YELLOW, Urine Clarity CLEAR, Urine pH 7.0, Urine Specific [place] 1.015L, Urine Protein NEGATIVE, Urine Glucose (UA) NEGATIVE, Urine Ketones NEGATIVE, Urine Nitrite NEGATIVE, Urine Bilirubin NEGATIVE, Urine Urobilinogen 0.2, Urine Leukocyte Esterase 1+H, Urine RBC (Auto) 2+H, Urine RBC 5-10H, Urine WBC 5-10H, Urine Squamous Epithelial Cells 5-10, Urine Crystals PRESENTH, Urine Amorphous Sediment FEW ELIE PHOSPHATEH, Urine Bacteria MODERATEH, Urine Casts NONE, Urine Mucus NEGATIVE, Urine Culture Indicated CULTURE PENDING 04/24/22 10:01: White Blood Count 14.2H, Red Blood Count 4.06, Hemoglobin 10.7L, Hematocrit 33L, Mean Corpuscular Volume 81, Mean Corpuscular Hemoglobin 26, Mean Corpuscular Hemoglobin Concent 33, Red Cell Distribution Width 13.8, Platelet Count 217, Mean Platelet Volume 10.7, Immature Granulocyte % (Auto) 1, Neutrophils (%) (Auto) 80H, Lymphocytes (%) (Auto) 14, Monocytes (%) (Auto) 5, Eosinophils (%) (Auto) 1, Basophils (%) (Auto) 0, Neutrophils # (Auto) 11.4H, Lymphocytes # (Auto) 1.9, Monocytes # (Auto) 0.6, Eosinophils # (Auto) 0.1, Basophils # (Auto) 0.0, Immature Granulocyte # (Auto) 0.1 04/24/22 11:05: MATT UP MD Apr 24, 2022 15:51
[2022-04-24] MEDS ORDERED: OXYTOCIN PRE-MIX DRIP 500 ML IV SCH (17:00)
[2022-04-24] MEDS ORDERED: CARBOPROST (HEMABATE) 250 MCG/ML AMP IM PRN (17:00)
[2022-04-24] MEDS ORDERED: BENZOCAINE/MENTHOL (DERMOPLAST) 56 ML CAN TP PRN (17:00)
[2022-04-24] MEDS ORDERED: METHYLERGONOVINE 0.2 MG/ML (METHERGINE) AMP IM PRN (17:00)
[2022-04-24] MEDS ORDERED: OXYTOCIN PRE-MIX DRIP 500 ML IV PRN (17:00)
[2022-04-24] MEDS ORDERED: WITCH HAZEL(TUCKS) 40 EA JAR TOP PRN (17:00)
--- NOTE | 2022-04-24 17:19 | OB Labor & Delivery Record ---
Vag Delivery Note Vag Delivery Note Date of Delivery: 04/24/22 Preoperative Diagnosis: Janine Kang is a (21 /Para 4 / 3, Gestational Age at 39weeks 4days, Labor Postoperative Diagnosis: Same Surgeon: MATT UP Anesthesia: Epidural Delivery Type: normal spontaneous vaginal delivery Findings: Living male , apgars 8 and 9 at 1 and 5 minutes respectively, weight 6 pounds 8 ounces Lacerations: none Intact placenta with 3 vessel cord. No nuchal cord, body cord or shoulder dystocia True knot x2 noted on umbilical cord at delivery Cytotec 800 mcg placed for hemorrhage prophylaxis Estimated Blood Loss: 250 ml Complications: None Condition: Stable Description of Procedure: The patient is a 21 year old female who presented for contractions. Cervix was 5cm on presentation with regular painful contractions. FHT was reactive, and vital signs were within normal ranges. She was admitted for labor, and informed consent was obtained. Her labor course was unremarkable. She received an epidural. AROM was performed for labor augmentation, after 5 hours without further cervical change. Thin meconium stained amniotic fluid was noted at the time of rupture. She progressed to complete dilatation soon after AROM. She was then set up for delivery, and began to push. She pushed to deliver a living male infant in TAMMY position. The 's head was delivered atraumatically, and the shoulders and remainder of the infant's body were then delivered without difficulty. There were no nuchal or body cords. True knot x2 was noted on the umbilical cord at the time of delivery. was vigorous with good cry at . Cord clamping was delayed for 30 seconds, and the cord was then doubly clamped and cut and the was handed off to the pediatric staff. Cord blood was collected. An intact placenta with 3-vessel cord delivered spontaneously with fundal massage. Moderate and continuous bleeding was noted after delivery of the placenta. Bleeding improved with fundal massage and Pitocin. 800mcg of rectal Cytotec was administered for further control of her uterine bleeding. The fundus was found to be firm on exam. Examination of the vagina and perineum revealed no lacerations. Sponge, instrument and needle counts were correct. Mom and baby were both in stable condition in the labor suite. Vitals - Labs Vital Signs - I&O Vital Signs Date Time Temp Pulse Resp B/P (MAP) Pulse Ox O2 Delivery O2 Flow Rate FiO2 10/21/22 15:00 18 Room Air 04/24/22 14:45 93 18 130/64 (86) Room Air 04/24/22 14:30 117/71 (86) Room Air 04/24/22 14:15 89 117/71 (86) 98 Room Air 04/24/22 14:00 36.5 88 18 98 Room Air 04/24/22 14:00 117/71 (86) Room Air 04/24/22 13:53 85 18 119/65 (83) 98 Room Air 04/24/22 13:50 89 18 113/66 (82) 97 Room Air 04/24/22 13:45 75 18 113/65 (81) 98 Room Air 04/24/22 13:40 85 18 107/57 (74) 97 04/24/22 13:30 88 18 114/60 (78) 98 Room Air 04/24/22 13:30 88 18 110/60 (77) 97 04/24/22 13:15 108 18 113/69 (84) 97 Room Air 04/24/22 13:03 93 125/77 (93) 04/24/22 12:59 91 18 137/85 (102) 100 Room Air 04/24/22 12:58 89 18 134/81 (98) 100 Room Air 04/24/22 12:54 98 18 139/91 (107) 100 Room Air 04/24/22 12:47 97 18 119/79 (92) 100 Room Air 04/24/22 12:30 04/24/22 12:00 04/24/22 11:30 Room Air 04/24/22 11:00 36.8 85 18 119/79 (92) 98 Room Air 04/24/22 10:00 36.8 103 18 100 Room Air Labs Laboratory Tests 04/24/22 09:30: Urine Color YELLOW, Urine Clarity CLEAR, Urine pH 7.0, Urine Specific [place] 1.015L, Urine Protein NEGATIVE, Urine Glucose (UA) NEGATIVE, Urine Ketones NEGATIVE, Urine Nitrite NEGATIVE, Urine Bilirubin NEGATIVE, Urine Urobilinogen 0.2, Urine Leukocyte Esterase 1+H, Urine RBC (Auto) 2+H, Urine RBC 5-10H, Urine WBC 5-10H, Urine Squamous Epithelial Cells 5-10, Urine Crystals PRESENTH, Urine Amorphous Sediment FEW ELIE PHOSPHATEH, Urine Bacteria MODERATEH, Urine Casts NONE, Urine Mucus NEGATIVE, Urine Culture Indicated CULTURE PENDING 04/24/22 10:01: White Blood Count 14.2H, Red Blood Count 4.06, Hemoglobin 10.7L, Hematocrit 33L, Mean Corpuscular Volume 81, Mean Corpuscular Hemoglobin 26, Mean Corpuscular Hemoglobin Concent 33, Red Cell Distribution Width 13.8, Platelet Count 217, Mean Platelet Volume 10.7, Immature Granulocyte % (Auto) 1, Neutrophils (%) (Auto) 80H, Lymphocytes (%) (Auto) 14, Monocytes (%) (Auto) 5, Eosinophils (%) (Auto) 1, Basophils (%) (Auto) 0, Neutrophils # (Auto) 11.4H, Lymphocytes # (Auto) 1.9, Monocytes # (Auto) 0.6, Eosinophils # (Auto) 0.1, Basophils # (Auto) 0.0, Immature Granulocyte # (Auto) 0.1 04/24/22 11:05: MATT UP MD Apr 24, 2022 17:19
[2022-04-24] MEDS: IBUPROFEN 800 MG (MOTRIN) TAB PO SCH (17:45)
[2022-04-24] MEDS ORDERED: PREN1TAB19 PO (19:58)
[2022-04-24] MEDS: DOCUSATE SODIUM 100 MG (COLACE) CAP PO SCH (20:50)
[2022-04-24] MEDS ORDERED: CATHETER FLUSH 10 ML SYR IV SCH (22:00)
[2022-04-25] MEDS: IBUPROFEN 800 MG (MOTRIN) TAB PO SCH ×3 (01:57→16:54)
[2022-04-25] MEDS: ACETAMINOPHEN 500 MG TAB (TYLENOL) PO PRN ×3 (01:57→18:18)
[2022-04-25 01:59] VITALS: BP 123/71
[2022-04-25 06:00] LABS: BASOPHILS % (AUTO) 0 % (0-10); EOSINOPHILS # (AUTO) 0.1 10^3/uL (0.0-0.3); EOSINOPHILS % (AUTO) 1 % (0-10); HEMATOCRIT 29 % (35-52); HEMOGLOBIN 9.2 g/dL (11.5-16.0); LYMPHOCYTES # (AUTO) 2.6 10^3/uL (1.0-4.0); LYMPHOCYTES % (AUTO) 21 % (12-44); MEAN CORPUSCULAR HEMOGLOBIN 26 pg (25-34); MEAN CORPUSCULAR HGB CONC 32 g/dL (32-36); MEAN CORPUSCULAR VOLUME 81 fL (80-99); MEAN PLATELET VOLUME 10.7 fL (9.0-12.2); MONOCYTES # (AUTO) 0.6 10^3/uL (0.0-1.0); MONOCYTES % (AUTO) 5 % (0-12); NEUTROPHILS # (AUTO) 8.9 10^3/uL (1.8-7.8); NEUTROPHILS % (AUTO) 73 % (42-75); PLATELET COUNT 177 10^3/uL (130-400); WHITE BLOOD COUNT 12.3 10^3/uL (4.3-11.0)
[2022-04-25 06:05] VITALS: BP 114/72
[2022-04-25] MEDS ORDERED: PRENATAL VITAMIN 1 EA TAB PO SCH (07:00)
[2022-04-25] MEDS ORDERED: FERROUS SULF 325 MG (IRON) TAB PO SCH (09:00)
[2022-04-25 09:30] VITALS: BP 109/64
[2022-04-25] MEDS: DOCUSATE SODIUM 100 MG (COLACE) CAP PO SCH (10:27)
[2022-04-25 14:10] VITALS: BP 119/66
--- NOTE | 2022-04-25 14:32 | Postpartum Progress Note ---
Note Note Day # 1 s/p Subjective: Patient is without complaints. Ambulating, voiding. Tolerating a regular diet without nausea or vomiting. Normal lochia. Pain is well controlled with oral pain medications. She is breast feeding her without difficulties. She denies any POLANCO, CP, SOB, palpitations, vision abnormalities. LE pain/edema Objective: Vital Signs 04/25/22 14:10 Temp 36.5 Pulse 80 Resp 18 B/P (MAP) 119/66 (83) Pulse Ox 96 O2 Delivery Room Air Physical Exam: General - Alert and oriented, no apparent distress Respirations: non-labored. Symmetric chest rise Heart: normal rate and peripheral perfusion Abdomen - Soft, appropriately tender to palpation, non-distended, fundus firm at umbilicus Extremities - no edema, NTTP, negative Misael's bilaterally Assessment: 21 yo post- day # 1, status post normal spontaneous vaginal delivery. Recovering well, hemodynamically stable Plan: Routine care. Encourage breast feeding. Encourage ambulation. Ferrous sulfate supplementation. Plan for discharge for today Vitals - Labs Vital Signs - I&O Vital Signs Date Time Temp Pulse Resp B/P (MAP) Pulse Ox O2 Delivery O2 Flow Rate FiO2 04/25/22 14:10 36.5 80 18 119/66 (83) 96 Room Air 04/25/22 09:30 36.7 78 18 109/64 (79) 100 Room Air 04/25/22 06:05 36.6 67 18 114/72 (86) 99 Room Air 04/25/22 01:59 36.3 71 18 123/71 (88) 96 Room Air 04/24/22 23:00 36.2 96 18 119/71 (87) 96 Room Air 04/24/22 18:35 93 18 113/61 (78) Room Air 04/24/22 18:20 89 18 122/74 (90) Room Air 04/24/22 18:06 88 18 122/75 (91) Room Air 04/24/22 17:50 79 18 122/76 (91) Room Air 04/24/22 17:36 79 18 113/71 (85) Room Air 04/24/22 17:20 86 18 113/64 (80) Room Air 04/24/22 17:05 76 18 120/73 (89) Room Air 04/24/22 16:56 36.4 85 18 132/62 (85) Room Air 04/24/22 16:15 85 18 Room Air 04/24/22 16:00 85 18 115/56 (75) Room Air 04/24/22 15:45 36.5 Room Air 04/24/22 15:30 82 18 93/57 (69) Room Air 04/24/22 15:15 94 18 118/74 (89) Room Air 04/24/22 15:00 18 Room Air 04/24/22 14:45 93 18 130/64 (86) Room Air 04/24/22 14:30 117/71 (86) Room Air I & O 04/25/22 07:00 Intake Total 2100 ml Balance 2100 ml Labs Laboratory Tests 04/25/22 05:47: White Blood Count 12.3H, Red Blood Count 3.58L, Hemoglobin 9.2L, Hematocrit 29L, Mean Corpuscular Volume 81, Mean Corpuscular Hemoglobin 26, Mean Corpuscular Hemoglobin Concent 32, Red Cell Distribution Width 13.8, Platelet Count 177, Mean Platelet Volume 10.7, Immature Granulocyte % (Auto) 1, Neutrophils (%) (Auto) 73, Lymphocytes (%) (Auto) 21, Monocytes (%) (Auto) 5, Eosinophils (%) (Auto) 1, Basophils (%) (Auto) 0, Neutrophils # (Auto) 8.9H, Lymphocytes # (Auto) 2.6, Monocytes # (Auto) 0.6, Eosinophils # (Auto) 0.1, Basophils # (Auto) 0.0, Immature Granulocyte # (Auto) 0.1 Microbiology 04/24/22 Urine Culture - Preliminary, Resulted Probable Coag Negative MATT Vee MD Apr 25, 2022 14:32
--- NOTE | 2022-04-25 14:35 | Short Stay Summary ---
Discharge Summary Hospital Course Was the Problem List Reviewed?: Yes Final Diagnosis: Labor, Spontaneous Vaginal Delivery Hospital Course Date of Admission: Apr 24, 2022 at 09:30 Admission Diagnosis : - Intrauterine at 39w4d - Labor Family Physician/Provider: Holly,Local Physician Date of Discharge: 04/25/22 Discharge Diagnosis: - Normal Spontaneous vaginal delivery Hospital Course: Janine Kang is a 21 year old G4 now P4004, who presented for contractions, and was admitted for labor in stable condition. Her labor course was unremarkable. She received an epidural for intrapartum pain management, and artificial rupture of membranes was performed for labor augmentation. She progressed to complete dilatation, and pushed to deliver a living male infant on 04/24/22 at 1624. Delivery was uncomplicated. Infant Ap gars were 8 and 9 at 1 and 5 minutes respectively and weighted 6 pounds and 6 ounces. Patient and baby tolerated the procedure well. Please see delivery note for full report. Her course was uncomplicated. On day 1, her hemoglobin was 9.2g/dL from 10.7g/dL. She was feeling well, and had no concerns. She was meeting all discharge goals and desired to go home. She was voiding without difficulty, ambulating, pain was controlled with PO medications, lochia minimal, tolerating regular PO diet without nausea or vomiting. She declined flu vaccination. Patient was counseled regarding risks of influenza viral illness to patient and baby, and she ocntinued to refuse vaccination. Patient was discharged home on day 1 in stable medical condition. Labs and Pending Lab Test: Laboratory Tests 04/25/22 05:47: White Blood Count 12.3H, Red Blood Count 3.58L, Hemoglobin 9.2L, Hematocrit 29L, Mean Corpuscular Volume 81, Mean Corpuscular Hemoglobin 26, Mean Corpuscular Hemoglobin Concent 32, Red Cell Distribution Width 13.8, Platelet Count 177, Mean Platelet Volume 10.7, Immature Granulocyte % (Auto) 1, Neutrophils (%) (Auto) 73, Lymphocytes (%) (Auto) 21, Monocytes (%) (Auto) 5, Eosinophils (%) (Auto) 1, Basophils (%) (Auto) 0, Neutrophils # (Auto) 8.9H, Lymphocytes # (Auto) 2.6, Monocytes # (Auto) 0.6, Eosinophils # (Auto) 0.1, Basophils # (Auto) 0.0, Immature Granulocyte # (Auto) 0.1 Microbiology 04/24/22 Urine Culture - Preliminary, Resulted Probable Coag Negative Staph Home Meds Active Reported Vitamins Tablet ( Vit/Iron Fumarate/FA) 28 Mg Iron-800 Mcg Tablet 1 Each PO DAILY Assessment/Pt Instructions 21 yo who is now 1 day , and doing well. Discharge home today. - Nothing in the vagina for 6 weeks; no tampons, douching, sex/intercourse, soaking in tubs/pools - Return for temperature >100.4 degrees, vaginal bleeding greater than 2 maxi pads in 1 hour over 2 hours, abdominal pain, intractable nausea or vomiting, headaches that don't go away with treatment, spots in your vision, chest pain/shortness of breath or other concerns. - Keep all follow up appointments. Discharge Instructions Discharge Diet: No Restrictions Activity as Tolerated: Yes Discharge Physical Examination General Appearance: Alert, Oriented X3, Cooperative, No Acute Distress HEENT: Atraumatic, EOMI Respiratory: Other (non-labored, symmetric chest rise) Cardiovascular: Regular Rate (normal peripheral perfusion) Abdominal: Soft, No Tenderness, Other (fundus palpable below umbilicus) Extremities: No Clubbing, No Cyanosis, No Edema, Normal Pulses Skin: No Breakdown, No Significant Lesion Neuro: Normal Gait, Normal Speech, Strength at 5/5 X4 Ext, Normal Tone, Sensation Intact Psych/Mental Status: Mental Status NL, Mood NL Allergies: Coded Allergies: No Known Drug Allergies (Unverified , 03/21/17) Discharge Summary Date of Admission Apr 24, 2022 at 09:30 Date of Discharge MATT UP MD Apr 25, 2022 14:35
[2022-04-25] MEDS ORDERED: IBUP-1780 PO (14:59)
[2022-04-25] MEDS ORDERED: ACET-93 PO (14:59)
[2022-04-25] MEDS ORDERED: FERR325T24 PO (14:59)
[2022-04-25] MEDS ORDERED: DOCU100C37 PO (14:59)
--- NOTE | 2022-04-25 15:00 | Discharge Inst-Simple/Standard ---
Discharge Inst-Standard Reconcile Patient Problems Problems Reviewed?: Yes Discharge Medications New, Converted or Re-Newed RX: Transmitted to Pharmacy Patient Instructions/Follow Up Plan of Care/Instructions/FU: - Nothing in the vagina for 6 weeks; no tampons, douching, sex/intercourse, soaking in tubs/pools - Return for temperature >100.4 degrees, vaginal bleeding greater than 2 maxi pads in 1 hour over 2 hours, abdominal pain, intractable nausea or vomiting, headaches that don't go away with treatment, spots in your vision, chest pain/shortness of breath or other concerns. - Keep all follow up appointments. Activity as Tolerated: Yes Discharge Diet: No Restrictions Return to The Hospital For: - Return for temperature >100.4 degrees, vaginal bleeding greater than 2 maxi pads in 1 hour over 2 hours, abdominal pain, intractable nausea or vomiting, headaches that don't go away with treatment, spots in your vision, chest pain/shortness of breath or other concerns. - Keep all follow up appointments. MATT UP MD Apr 25, 2022 15:00
--- NOTE | 2022-04-27 07:27 | Anesthesia-Regional Post-Op ---
Regional Patient Condition Mental Status: Alert, Oriented x3 Circulation: Same as Pre-Op Headache: Absent Sensation: Full Recovery Motor Block: Absent Post Op Complications Complications None Follow Up Care/Instructions Patient Instructions None needed. Anesthesia/Patient Condition Patient is doing well, no complaints, stable vital signs, no apparent adverse anesthesia problems. No complications reported per nursing. EDMOND PANG CRNA Apr 27, 2022 07:27
== END 2022-04-25 19:20 | disposition home or self-care (01) | DRG 807 ==
LOC: LDRP 09:30
PROVIDERS: ADMIT Obstetrics & Gynecology; ATTEND Obstetrics & Gynecology
PROC: 10E0XZZ Delivery of Products of Conception, External Approach (ICD-10-PCS; principal; 2022-04-24)
PROC: 10907ZC Drainage of Amniotic Fluid, Therapeutic from Products of Conception, Via Natural or Artificial Opening (ICD-10-PCS; 2022-04-24)
DX: O99.62 Diseases of the digestive system complicating childbirth (principal); Z37.0 Single live birth; Z3A.39 39 weeks gestation of pregnancy; K21.9 Gastro-esophageal reflux disease without esophagitis; O77.0 Labor and delivery complicated by meconium in amniotic fluid
CPT/HCPCS: 36415; 81000; 85025; 86780; 86850; 86870; 86900; 86901; 87088; 99212

== ENCOUNTER → 2023-01-01 | Outpatient (CLI) | payer BC, MEDICAID ==
[~2023-01-01] MED LIST changes: +ACET-93 PO; +FERR325T24 PO; +IBUP-1780 PO; +PREN1TAB19 PO
--- NOTE | 2023-01-01 17:18 | Diagnostic Imaging Report ---
INDICATION: Twin , care TECHNIQUE: Multiple real-time grayscale images were obtained over the gravid uterus. COMPARISON: None FINDINGS/ IMPRESSION:: Twin . Findings for baby A and baby B are both reported on the concurrent exam: [id number]. Please refer to separate report. Dictated by: Dictated on workstation # [id number]
--- NOTE | 2023-01-01 17:40 | Diagnostic Imaging Report ---
INDICATION: , 20 weeks 6 days TECHNIQUE: Multiple real-time grayscale images were obtained over the gravid uterus. COMPARISON: None FINDINGS: There are dichorionic diamniotic twins. Baby A is on maternal left and baby B is on the maternal right. The cervix measures 4.9 cm in length. BABY A: The placenta is posterior to the left. No evidence of previa is shown. Presentation is cephalic. The amniotic fluid index measures 12.1 cm. The heart rate measures 127 BPM. A four-chamber heart is seen. The stomach is seen. The left ventricular outflow tract is suboptimally visualized. The profile is seen. The lateral ventricle is seen. The kidneys are seen. The cord insertion is seen. The bladder is seen. A three-vessel cord is demonstrated with 2 umbilical arteries. The cerebellum and cisterna magna are seen. The upper spine is not well seen due to lie. The lower spine is seen. The right ventricular outflow tract is seen. Biometrical measurements are as follows: Biparietal 4.81 cm, age 20 weeks 4 days. Head circumference 17.59 cm, age 20 weeks 1 days. Abdominal circumference 14.93 cm, age 20 weeks 2 days. Femur length 3.22 cm, age 20 weeks 3 days. Sonographic estimate age: 20 weeks 2 days. Sonographic estimated date of delivery: 05/19/2023. Estimated Weight: 334 gm (+/- 49 gm). LMP percentile: 14%. heart rate: 127 beats per minute. BABY B: The placenta is posterior. No evidence of previa is shown. Presentation is cephalic. The amniotic fluid index measures 12.1 cm. heart rate measures 136 BPM. The cerebellum and cisterna magna are seen. The lateral ventricle is seen. The stomach is seen. The four-chamber heart is suboptimally visualized. The bladder is seen. A three-vessel cord is demonstrated with 2 umbilical arteries. The cord insertion is seen. The kidneys are seen. The profile is seen. The upper and lower spine is seen. The profile is seen. The right ventricular outflow tract is suboptimally visualized. Biometrical measurements are as follows: BPD measures 4.71 cm, 20 weeks 2 days HC measures 18.3 cm, 20 weeks 5 days AC measures 15.75 cm, 21 weeks 0 days FL measures 3.5 cm, 21 weeks 1 day Estimated gestational age by today's ultrasound is 20 weeks and 6 days with estimated date of delivery of 05/15/2023. Estimated weight is 386 g +/- 57 g which is in the 48th percentile. IMPRESSION: 1. Twin , with baby A to maternal left. 2. Baby A measures at 20 weeks and 2 days which is within range of the clinical dates. No abnormality is seen on anatomic survey. The left ventricular outflow tract and upper spine are not well seen. 3. Twin , with baby B to the maternal right. 4. Baby B measures 20 weeks and 6 days which is concordant with the clinical dates. No abnormality is seen on survey. The four-chamber heart and outflow tract are not well seen. Dictated by: Dictated on workstation # [id number]
== END ==
LOC: RAD 13:55
PROVIDERS: ATTEND Obstetrics & Gynecology
DX: Z34.02 Encounter for supervision of normal first pregnancy, second trimester (principal); Z3A.20 20 weeks gestation of pregnancy
CPT/HCPCS: 76805; 76810